=== PATIENT | female | born 1955 | race African-American/Black ===

== ENCOUNTER 2019-03-06 07:57 | Emergency (ER) | payer OTHER ==
[~2019-03-06] VITALS: Ht 149.9 cm; Wt 70.3 kg
[2019-03-06 08:02] VITALS: BP_SYST 144
--- NOTE | 2019-03-06 08:09 | NUR ---
Patient to ER bed H1 to gown for evaluation. Side rails up.
--- NOTE | 2019-03-06 08:15 | NUR ---
PT CAME TO ER FOR MED CLEARANCE TO [facility]. PT IS HYPERVERBAL, WANDERS, DOES NOT FOLLOW DIRECTIONS.
--- NOTE | 2019-03-06 08:20 | NUR ---
ER at bedside examining patient.
[2019-03-06] MEDS ORDERED: ZIPRASIDONE HCL 80 MG PO ONE (09:00)
[2019-03-06] MEDS ORDERED: LORazepam 2 MG/ML VIAL IM ONE ×2 (09:00→10:30)
[2019-03-06] MEDS ORDERED: ZIPRASIDONE HCL 20 MG CAPSULE (GEODON) PO ONE (09:00)
[2019-03-06] MEDS ORDERED: DIPHENHYDRAMINE INJ 50 MG/ML VIAL IM ONE ×2 (09:00→10:30)
[2019-03-06 09:02] LABS: BASOPHILS % (AUTO) 0.5 % (0.0-2.0); EOSINOPHILS # (AUTO) 0.1 K/uL (0.0-0.4); EOSINOPHILS % (AUTO) 0.9 % (0.0-4.0); HEMATOCRIT 38.3 % (36-48); HEMOGLOBIN 12.6 g/dL (12.0-16.0); LYMPHOCYTES # (AUTO) 2.4 K/uL (1.0-5.5); LYMPHOCYTES % (AUTO) 31.8 % (20.5-51.5); MEAN CORPUSCULAR HEMOGLOBIN 33 pg (27-31); MEAN CORPUSCULAR HGB CONC 33 % (32-36); MEAN CORPUSCULAR VOLUME 101 fL (79.0-98.0); MONOCYTES # (AUTO) 0.7 K/uL (0.0-1.0); NEUTROPHILS # (AUTO) 4.4 K/uL (1.8-7.7); NEUTROPHILS % (AUTO) 57.8 % (40.0-70.0); PLATELET COUNT (AUTO) 157 K/uL (130-430); RED CELL DISTRIBUTION WIDTH 14.1 % (9.0-15.0); WHITE BLOOD COUNT (AUTO) 7.6 K/uL (4.8-10.8)
[2019-03-06 09:17] LABS: ANION GAP 4 (5-15); CALCIUM 8.3 mg/dL (8.4-11.0); CHLORIDE 104 mmol/L (98-107); CREATININE 0.85 mg/dL (0.55-1.30); GLUCOSE 159 mg/dL (70-99); SODIUM SERUM 143 mmol/L (136-145); UREA NITROGEN, BLOOD 28 mg/dL (8-21)
[2019-03-06 09:19] LABS: GFR AFRICAN AMERICAN 86 mL/min (>90)
[2019-03-06 09:22] LABS: CHOLESTEROL 145 mg/dL (<200); HDL CHOLESTEROL 62 mg/dL (>55); LDL CHOLESTEROL 46 mg/dL (<100); TRIGLYCERIDES 76 mg/dL (30-150)
[2019-03-06 09:31] LABS: ALANINE AMINOTRANSFERASE 28 U/L (12-78); ALBUMIN 3.4 g/dL (3.4-4.8); ASPARTATE AMINOTRANSFERASE 14 U/L (10-37); TOTAL BILIRUBIN 0.4 mg/dL (0.0-1.0)
[2019-03-06 09:42] LABS: ACETAMINOPHEN < 1 ug/mL (1-30)
[2019-03-06 09:43] LABS: ALCOHOL, BLOOD < 3 mg/dL (<10)
[2019-03-06] MEDS ORDERED: HALOPERIDOL LACTATE 5 MG/ML VIAL IM ONE (10:00)
[2019-03-06 11:30] VITALS: BP_SYST 151
--- NOTE | 2019-03-06 11:30 | NUR ---
Patient to be transferred to [facility]. Is being transferred due to higher level of care. Receiving facility has accepting physician and available space. ER physician has signed transfer form. Patient or responsible constitution party has agreed to transfer and signed form. Patient belongings inventoried and will be sent with patient. Copy of nursing notes, lab reports, EKG, Physicians Orders and X-rays to be sent with patient. Report called to INTAKE at receiving facility. Receiving physician is [facility] ambulance service has been called for transfer. ETA is NOW
== END 2019-03-06 11:30 ==
LOC: SED 07:57
DX: F29 Unspecified psychosis not due to a substance or known physiological condition (principal); F03.91 Unspecified dementia, unspecified severity, with behavioral disturbance; F32.9 Major depressive disorder, single episode, unspecified; F20.9 Schizophrenia, unspecified; F41.9 Anxiety disorder, unspecified
CPT/HCPCS: 36415; 80053; 80061; 83036; 85025; 87081; 96372; 99285; G0480; G0481; G0482; J1200; J1630; J2060